=== PATIENT | male | born 1960 | race African-American/Black ===

== ENCOUNTER 2024-01-18 03:23 | Emergency (ER) | payer MEDICAID, OTHER ==
[~2024-01-18] VITALS: Ht 182.9 cm; Wt 81.6 kg
[2024-01-18] MEDS ORDERED: ONDANSETRON HCL/PF 4 MG/2 ML VIAL ONE (03:55)
[2024-01-18] MEDS ORDERED: MORPHINE SULFATE INJ 2 MG/ML DISP.SYRIN ONE (03:55)
[2024-01-18] MEDS: IV NS 0.9% 1,000 ML BAG IV ONE (04:15)
[2024-01-18 04:19] LABS: BASOPHILS # (AUTO) 0.1 K/uL (0.0-0.2); BASOPHILS % (AUTO) 0.6 % (0.0-2.0); EOSINOPHILS % (AUTO) 0.3 % (0.0-6.0); HEMATOCRIT 43 % (39-51); HEMOGLOBIN 13.8 g/dL (13.5-17.5); LYMPHOCYTES # (AUTO) 1.4 K/uL (0.8-4.8); LYMPHOCYTES % (AUTO) 15.5 % (20.0-44.0); MEAN CORPUSCULAR HEMOGLOBIN 27 PG (26.0-33.0); MEAN CORPUSCULAR HGB CONC 32 g/dl (31.0-36.0); MEAN CORPUSCULAR VOLUME 84 fL (80-96); MONOCYTES # (AUTO) 0.9 K/uL (0.1-1.30); MONOCYTES % (AUTO) 9.4 % (2.0-12.0); NEUTROPHILS # (AUTO) 6.7 K/uL (1.8-8.9); NEUTROPHILS % (AUTO) 74.2 % (43.0-81.0); PLATELET COUNT (AUTO) 417 K/uL (150-450); RED BLOOD CELL COUNT(AUTO) 5.04 MIL/uL (4.5-6.0); RED CELL DISTRIBUTION WIDTH 15.2 % (11.5-15.0); WHITE BLOOD COUNT (AUTO) 9.1 K/uL (4.3-11.0)
[2024-01-18] MEDS: ONDANSETRON HCL/PF 4 MG/2 ML VIAL IVP ONE (04:24)
[2024-01-18] MEDS: MORPHINE SULFATE INJ 2 MG/ML DISP.SYRIN IV ONE (04:24)
[2024-01-18 04:30] LABS: CALCIUM, SERUM 8.9 mg/dL (8.5-10.1); CARBON DIOXIDE 27 mmol/L (21-32); CHLORIDE 108 mmol/L (98-107); GLUCOSE 147 mg/dL (74-106); POTASSIUM 3.8 mmol/L (3.5-5.1); SODIUM SERUM 148 mmol/L (136-145); UREA NITROGEN, BLOOD 18 mg/dL (7-18)
[2024-01-18 04:32] LABS: ALANINE AMINOTRANSFERASE 17 U/L (12-78); ALBUMIN 3.5 g/dL (3.4-5.0); ALKALINE PHOSPHATASE 109 U/L (46-116); ASPARTATE AMINOTRANSFERASE 19 U/L (15-37); BILIRUBIN,DIRECT 0.1 mg/dL (0.0-0.2); BILIRUBIN,TOTAL 0.8 mg/dL (0.2-1.0); LIPASE 35 U/L (16-77); TOTAL PROTEIN, SERUM 7.7 g/dL (6.4-8.2)
[2024-01-18 04:38] LABS: INR 1.02 (0.91-1.10); PARTIAL THROMBOPLASTIN TIME 28.2 SEC (24.3-34.3); PROTHROMBIN TIME 10.8 SECS (9.2-11.1)
[2024-01-18 05:38] LABS: APPEARANCE,URINE SLIGHTLY CLOUDY (CLEAR); BILIRUBIN,URINE 2+ (NEGATIVE); BLOOD, URINE NEGATIVE Ery/uL (NEGATIVE); COLOR,URINE YELLOW (YELLOW); KETONES,URINE 3+ mg/dL (NEGATIVE); LEUKOCYTE ESTERASE ,URINE NEGATIVE (NEGATIVE); NITRITE, URINE NEGATIVE (NEGATIVE); PH,URINE 7.5 (5.0-8.0); PROTEIN,URINE 1+ mg/dl (NEGATIVE); UGLUCOSE NEGATIVE (NEGATIVE)
[2024-01-18] MEDS ORDERED: ONDA4TAB5 PO (05:40)
[2024-01-18 05:52] LABS: RBC,URINE 0-2 /HPF (0-2); WBC,URINE NONE SEEN /HPF (0-3)
[2024-01-18 05:53] LABS: ADD URINE CULTURE NO; BACTERIA,URINE Few /HPF (None Seen); SQUAMOUS EPITHELIAL CELL,UR Rare /HPF (None Seen)
[2024-01-18 05:54] LABS: HYALINE CASTS, URINE Few /LPF (None Seen)
[2024-01-18] MEDS ORDERED: ONDANSETRON 4 MG TAB.RAPDIS ONE (07:37)
[2024-01-18] MEDS: ONDANSETRON 4 MG TAB.RAPDIS SL ONE (07:38)
[2024-01-18 08:33] VITALS: BP 128/71; TEMP 98; O2SAT 99
== END 2024-01-18 08:34 | disposition home or self-care (01) ==
LOC: ER 03:31
DX: R10.9 Unspecified abdominal pain (principal); R11.2 Nausea with vomiting, unspecified; J44.9 Chronic obstructive pulmonary disease, unspecified; Z88.8 Allergy status to other drugs, medicaments and biological substances
CPT/HCPCS: 99285; 74176; 96374; 71045; 96361; 96375; 93005; 85025; 80048; 83690; 80076; 81001; 36415; 84484; 85730; J2405; J7030; Q0162; J2270

== ENCOUNTER 2024-05-16 18:06 | Emergency (ER) | payer MEDICAID, OTHER ==
[~2024-05-16] VITALS: Ht 182.9 cm; Wt 77.1 kg
[~2024-05-16 18:06] MED LIST: ONDA4TAB5 PO
[2024-05-16] MEDS ORDERED: ALBU8.5H8 INH (18:44)
[2024-05-16] MEDS ORDERED: PRED50TA PO (18:44)
[2024-05-16] MEDS ORDERED: predniSONE 20 MG TABLET ONE (19:12)
[2024-05-16] MEDS ORDERED: ACETAMINOPHEN ES 500 MG TABLET ONE (19:12)
[2024-05-16] MEDS: predniSONE 20 MG TABLET PO ONE (19:13)
[2024-05-16] MEDS: ACETAMINOPHEN ES 500 MG TABLET PO ONE (19:13)
[2024-05-16] MEDS: ALBUTEROL FS 2.5 MG/3 ML VIAL.NEB NEB ONE (19:22)
[2024-05-16] MEDS: IPRATROPIUM NEB FS 0.5 MG/2.5 ML AMPUL.NEB NEB ONE (19:22)
[2024-05-16] MEDS ORDERED: IPRATROPIUM NEB FS 0.5 MG/2.5 ML AMPUL.NEB ONE (19:26)
[2024-05-16] MEDS ORDERED: ALBUTEROL FS 2.5 MG/3 ML VIAL.NEB ONE (19:26)
[2024-05-16 19:27] VITALS: O2SAT 96
[2024-05-16 19:42] VITALS: O2SAT 98
[2024-05-16 19:43] VITALS: O2SAT 98
[2024-05-16 19:58] VITALS: O2SAT 99
[2024-05-16] MEDS: GUAIFENESIN/D-METHORPHAN HB 5 ML UDC PO ONE (20:00)
[2024-05-16] MEDS ORDERED: GUAI-946 PO (20:01)
[2024-05-16] MEDS ORDERED: GUAIFENESIN/D-METHORPHAN HB 5 ML UDC ONE (20:11)
[2024-05-17 00:23] VITALS: BP 136/74; TEMP 98.6; O2SAT 95
== END 2024-05-17 00:24 ==
LOC: ER 18:24
DX: J44.1 Chronic obstructive pulmonary disease with (acute) exacerbation (principal); B97.89 Other viral agents as the cause of diseases classified elsewhere; I11.0 Hypertensive heart disease with heart failure; I50.9 Heart failure, unspecified; Z59.01 Sheltered homelessness; Z77.22 Contact with and (suspected) exposure to environmental tobacco smoke (acute) (chronic); Z89.512 Acquired absence of left leg below knee
CPT/HCPCS: 99285; 94640 ×2; J7512

== ENCOUNTER 2024-05-31 12:48 | Inpatient (IN) | payer MEDICAID ==
[2024-05-31] VITALS (7 sets, daily range): BP systolic 109; BP diastolic 66; TEMP 97.5; O2SAT 89–100
[~2024-05-31] VITALS: Ht 182.9 cm; Wt 74.9 kg
[~2024-05-31 12:48] MED LIST changes: +ALBU8.5H8 INH; +GUAI-946 PO; +PRED50TA PO
[2024-05-31] MEDS ORDERED: predniSONE 20 MG TABLET ONE (13:24)
[2024-05-31] MEDS: predniSONE 20 MG TABLET PO ONE (13:49)
[2024-05-31] MEDS ORDERED: IPRATROPIUM NEB FS 0.5 MG/2.5 ML AMPUL.NEB ONE (14:06)
[2024-05-31] MEDS ORDERED: ALBUTEROL FS 2.5 MG/3 ML VIAL.NEB ONE (14:06)
[2024-05-31] MEDS: IPRATROPIUM NEB FS 0.5 MG/2.5 ML AMPUL.NEB NEB ONE (14:07)
[2024-05-31] MEDS: ALBUTEROL FS 2.5 MG/3 ML VIAL.NEB NEB ONE (14:07)
[2024-05-31 14:39] LABS: CALCIUM, SERUM 8.5 mg/dL (8.5-10.1); CARBON DIOXIDE 23 mmol/L (21-32); CHLORIDE 104 mmol/L (98-107); GLUCOSE 107 mg/dL (74-106); POTASSIUM 3.9 mmol/L (3.5-5.1); SODIUM SERUM 139 mmol/L (136-145); UREA NITROGEN, BLOOD 17 mg/dL (7-18)
[2024-05-31 14:44] LABS: BASOPHILS # (AUTO) 0.1 K/uL (0.0-0.2); BASOPHILS % (AUTO) 0.7 % (0.0-2.0); EOSINOPHILS % (AUTO) 0.3 % (0.0-6.0); HEMATOCRIT 38 % (39-51); HEMOGLOBIN 13.1 g/dL (13.5-17.5); LYMPHOCYTES % (AUTO) 15.4 % (20.0-44.0); MEAN CORPUSCULAR HEMOGLOBIN 29 PG (26.0-33.0); MEAN CORPUSCULAR HGB CONC 34 g/dl (31.0-36.0); MEAN CORPUSCULAR VOLUME 83 fL (80-96); MONOCYTES # (AUTO) 1.2 K/uL (0.1-1.30); NEUTROPHILS # (AUTO) 9.7 K/uL (1.8-8.9); NEUTROPHILS % (AUTO) 74.6 % (43.0-81.0); PLATELET COUNT (AUTO) 337 K/uL (150-450); RED BLOOD CELL COUNT(AUTO) 4.59 MIL/uL (4.5-6.0); RED CELL DISTRIBUTION WIDTH 15.9 % (11.5-15.0)
[2024-05-31] MEDS ORDERED: Z GUARD REMEDY 4 OZ OINT TP PRN (16:00)
[2024-05-31] MEDS ORDERED: MAG HYDROX/AL HYDROX/SIMETH 30 ML UDC PO PRN (16:00)
[2024-05-31] MEDS ORDERED: MAGNESIUM HYDROXIDE 30 ML UDC PO PRN (16:00)
[2024-05-31] MEDS ORDERED: ONDANSETRON HCL/PF 4 MG/2 ML VIAL IVP PRN (16:00)
[2024-05-31] MEDS ORDERED: CEFTRIAXONE 1GM BAG (ER ONLY) 0 ML IV ONE (16:31)
[2024-05-31] MEDS: KETOROLAC TROMETHAMINE 15 MG/ML VIAL IV ONE (16:50)
[2024-05-31] MEDS: CEFTRIAXONE 1GM BAG (ER ONLY) 50 ML IV ONE (16:50)
[2024-05-31] MEDS: AZITHROMYCIN 500 MG in IV D5W 250 ML IV ONE (16:50)
[2024-05-31] MEDS: IPRATROPIUM NEB FS 0.5 MG/2.5 ML AMPUL.NEB NEB SCH (17:00)
[2024-05-31] MEDS: ALBUTEROL FS 2.5 MG/3 ML VIAL.NEB CONTNEB SCH (17:00)
[2024-05-31] MEDS: ENOXAPARIN SODIUM 40 MG/0.4 ML DISP.SYRIN SQ SCH (18:23)
[2024-05-31] MEDS ORDERED: GUAIFENESIN PO PRN (19:00)
[2024-05-31] MEDS ORDERED: DEXTROMETHORPHAN PO PRN (19:00)
[2024-05-31] MEDS ORDERED: [UNRECOGNIZED DRUG - OTHER] PO PRN (19:00)
[2024-05-31] MEDS: methylPREDNISolone SOD SUCC 40 MG/ML VIAL IV SCH (21:25)
[2024-05-31] MEDS: ASPIRIN 81 MG TAB.CHEW PO SCH (23:45)
[2024-06-01] VITALS (16 sets, daily range): BP systolic 110–137; BP diastolic 65–81; TEMP 97.3–98.4; O2SAT 95–99
[2024-06-01] MEDS: ONDANSETRON 4 MG TAB.RAPDIS PO SCH (00:27)
[2024-06-01] MEDS: PANTOPRAZOLE 40 MG TABLET.DR PO SCH (08:15)
[2024-06-01] MEDS: BENZONATATE 100 MG CAPSULE PO PRN (12:07)
[2024-06-01 15:39] LABS: BASOPHILS # (AUTO) 0.1 K/uL (0.0-0.2); BASOPHILS % (AUTO) 0.3 % (0.0-2.0); HEMATOCRIT 38 % (39-51); HEMOGLOBIN 12.5 g/dL (13.5-17.5); LYMPHOCYTES # (AUTO) 0.6 K/uL (0.8-4.8); LYMPHOCYTES % (AUTO) 2.8 % (20.0-44.0); MEAN CORPUSCULAR HEMOGLOBIN 28 PG (26.0-33.0); MEAN CORPUSCULAR HGB CONC 33 g/dl (31.0-36.0); MEAN CORPUSCULAR VOLUME 85 fL (80-96); MONOCYTES # (AUTO) 0.9 K/uL (0.1-1.30); MONOCYTES % (AUTO) 4.3 % (2.0-12.0); NEUTROPHILS # (AUTO) 19.8 K/uL (1.8-8.9); NEUTROPHILS % (AUTO) 92.6 % (43.0-81.0); PLATELET COUNT (AUTO) 330 K/uL (150-450); RED BLOOD CELL COUNT(AUTO) 4.48 MIL/uL (4.5-6.0); RED CELL DISTRIBUTION WIDTH 16.6 % (11.5-15.0); WHITE BLOOD COUNT (AUTO) 21.4 K/uL (4.3-11.0)
[2024-06-01] MEDS: CEFTRIAXONE 1 G in IV D5W 50 ML IV SCH (16:05)
[2024-06-01] MEDS: GABAPENTIN 300 MG CAPSULE PO SCH (16:05)
[2024-06-01 16:37] LABS: CALCIUM, SERUM 8.8 mg/dL (8.5-10.1); CREATININE 1.1 mg/dL (0.6-1.3); MAGNESIUM 2.3 mg/dL (1.8-2.4); POTASSIUM 4.2 mmol/L (3.5-5.1)
[2024-06-01] MEDS: AZITHROMYCIN 500 MG in IV D5W 250 ML IV SCH (16:49)
[2024-06-01 17:45] LABS: ANISOCYTOSIS 1+; BAND % (MANUAL) 2 % (0.0-5.0); LYMPHOCYTES % (MANUAL) 7 % (16-48); MONOCYTES % (MANUAL) 6 % (0-11.0); NEUTROPHILS % (MANUAL) 85 (42-76); PLATELET ESTIMATE ADEQUATE
[2024-06-01] MEDS: K PHOS NEUTRAL 250 MG TABLET PO ONE (18:11)
[2024-06-02] VITALS (12 sets, daily range): BP systolic 119–138; BP diastolic 65–77; TEMP 98.2–98.6; O2SAT 94–98
[2024-06-02] MEDS: ZOLPIDEM TARTRATE 5 MG TABLET PO PRN (00:05)
[2024-06-02 07:39] LABS: BASOPHILS % (AUTO) 0.1 % (0.0-2.0); HEMATOCRIT 36 % (39-51); HEMOGLOBIN 11.7 g/dL (13.5-17.5); LYMPHOCYTES # (AUTO) 0.5 K/uL (0.8-4.8); LYMPHOCYTES % (AUTO) 2.5 % (20.0-44.0); MEAN CORPUSCULAR HEMOGLOBIN 28 PG (26.0-33.0); MEAN CORPUSCULAR HGB CONC 33 g/dl (31.0-36.0); MEAN CORPUSCULAR VOLUME 85 fL (80-96); MONOCYTES % (AUTO) 4.8 % (2.0-12.0); NEUTROPHILS # (AUTO) 19.5 K/uL (1.8-8.9); NEUTROPHILS % (AUTO) 92.6 % (43.0-81.0); PLATELET COUNT (AUTO) 324 K/uL (150-450); RED BLOOD CELL COUNT(AUTO) 4.21 MIL/uL (4.5-6.0)
[2024-06-02 07:57] LABS: CALCIUM, SERUM 8.1 mg/dL (8.5-10.1); PHOSPHORUS 3.6 mg/dL (2.5-4.9)
[2024-06-02 10:17] LABS: LYMPHOCYTES % (MANUAL) 2 % (16-48); MONOCYTES % (MANUAL) 2 % (0-11.0); NEUTROPHILS % (MANUAL) 96 (42-76)
[2024-06-02 10:18] LABS: PLATELET ESTIMATE ADEQUATE
[2024-06-02] MEDS: GUAIFENESIN 300 MG/15 ML UDC PO PRN (10:34)
[2024-06-02] MEDS ORDERED: TRAZ-257 PO (15:04)
[2024-06-02] MEDS ORDERED: MECL-159 PO (15:04)
[2024-06-02] MEDS ORDERED: HYDR50TA61 PO (15:04)
[2024-06-02] MEDS ORDERED: QUET300T2 PO (15:04)
[2024-06-02] MEDS ORDERED: LOSA50TA39 PO (15:04)
[2024-06-02] MEDS ORDERED: GABA600T PO (15:04)
[2024-06-02] MEDS ORDERED: BUSP10TA3 PO (15:04)
[2024-06-02] MEDS ORDERED: VARE1TAB PO (15:04)
[2024-06-02] MEDS ORDERED: OXCA150T13 PO (15:04)
[2024-06-02] MEDS ORDERED: IBUP-1957 PO (15:04)
[2024-06-02] MEDS ORDERED: AMLO5TAB4 PO (15:04)
[2024-06-02] MEDS ORDERED: FLUO20CA36 PO (15:04)
[2024-06-02] MEDS: ACETAMINOPHEN 325 MG TABLET PO PRN (22:48)
[2024-06-03 07:25] VITALS: O2SAT 96
[2024-06-03 07:36] VITALS: O2SAT 98
[2024-06-03 07:41] LABS: BASOPHILS % (AUTO) 0.2 % (0.0-2.0); HEMATOCRIT 34 % (39-51); HEMOGLOBIN 11.3 g/dL (13.5-17.5); LYMPHOCYTES # (AUTO) 0.5 K/uL (0.8-4.8); LYMPHOCYTES % (AUTO) 4.1 % (20.0-44.0); MEAN CORPUSCULAR HEMOGLOBIN 28 PG (26.0-33.0); MEAN CORPUSCULAR HGB CONC 33 g/dl (31.0-36.0); MEAN CORPUSCULAR VOLUME 84 fL (80-96); MONOCYTES # (AUTO) 0.5 K/uL (0.1-1.30); MONOCYTES % (AUTO) 4.3 % (2.0-12.0); NEUTROPHILS # (AUTO) 11.7 K/uL (1.8-8.9); NEUTROPHILS % (AUTO) 91.4 % (43.0-81.0); PLATELET COUNT (AUTO) 320 K/uL (150-450); RED BLOOD CELL COUNT(AUTO) 4.05 MIL/uL (4.5-6.0); RED CELL DISTRIBUTION WIDTH 16.7 % (11.5-15.0); WHITE BLOOD COUNT (AUTO) 12.8 K/uL (4.3-11.0)
[2024-06-03 07:59] LABS: CREATININE 0.8 mg/dL (0.6-1.3); PHOSPHORUS 2.8 mg/dL (2.5-4.9); POTASSIUM 4.2 mmol/L (3.5-5.1)
[2024-06-03 08:00] VITALS: BP 133/85; TEMP 98.4; O2SAT 93
[2024-06-03] MEDS ORDERED: METH4TAB3 PO (09:06)
[2024-06-03] MEDS ORDERED: ALBU8.5H8 INH (09:06)
[2024-06-03] MEDS ORDERED: BUDE10.2 INH (09:06)
[2024-06-03] MEDS ORDERED: AMOX-427 PO (09:06)
[2024-06-03 11:23] VITALS: O2SAT 97
[2024-06-03 11:34] VITALS: O2SAT 98
== END 2024-06-03 17:14 | disposition home or self-care (01) | DRG 720 ==
LOC: ER 13:14 → TELE 16:57 → MED 06-02 14:55
PROVIDERS: ADMIT Student in an Organized Health Care Education/Training Program; ATTEND Student in an Organized Health Care Education/Training Program
DX: A41.9 Sepsis, unspecified organism (principal); J96.01 Acute respiratory failure with hypoxia; J44.1 Chronic obstructive pulmonary disease with (acute) exacerbation; J06.9 Acute upper respiratory infection, unspecified; D64.9 Anemia, unspecified; I10 Essential (primary) hypertension; Z86.718 Personal history of other venous thrombosis and embolism; Z89.512 Acquired absence of left leg below knee
CPT/HCPCS: 36415; 71045-TC; 80048-TC; 83605-TC; 83735-TC; 84100-TC; 84484-TC; 85025-TC; 87040-TC; 94760-TC; 94799-TC; G0378; J0456; J0696; J1650; J1885; J2919; J7060; Q0162